=== PATIENT | female | born 1990 | race Native Hawaiian/Other Pacific Islander ===

== ENCOUNTER 2022-08-24 00:59 | Emergency (ER) | payer OTHER | END 2022-08-24 06:47 | disposition home or self-care (01) | LOC: ED 00:59 | DX: Z53.21 Procedure and treatment not carried out due to patient leaving prior to being seen by health care provider (principal) | CPT/HCPCS: 99281 ==

== ENCOUNTER 2022-08-24 06:47 | Emergency (ER) | payer OTHER ==
[~2022-08-24] VITALS: Ht 160 cm; Wt 86.2 kg
[2022-08-24 06:47] VITALS: TEMP 98.2
[2022-08-24 07:34] VITALS: BP 135/87
== END 2022-08-24 08:15 | disposition home or self-care (01) ==
LOC: ED 06:47
DX: J20.9 Acute bronchitis, unspecified (principal); Z20.822 Contact with and (suspected) exposure to COVID-19; F17.210 Nicotine dependence, cigarettes, uncomplicated
CPT/HCPCS: 87635; 87651; 94664; 99283; U0001